=== PATIENT | male | born 1940 | race Caucasian/White ===

== ENCOUNTER → 2017-07-06 | Outpatient (CLI) | payer MEDICARE, OTHER ==
[~2017-07-06] MED LIST: ALLO300T PO; ASCO250T2 PO; ASPI-650 PO; ATOR10TA PO; CARV10CP PO; CHOL500045 PO; CYAN500T2 PO; DUTA0.5C PO; FAMO-79 PO; FOLI0.4T2 PO; GLIP5TAB10 PO; GLIP5TAB22 PO; HYDR-3240 PO; HYDR25TA6 PO; METF500T4 PO; METH4TAB2 PO; METH750T87 PO; MULT-717 PO; NIAC1000 PO; POTA10TA17 PO; POTA20TA6 PO; PYRI100T2 PO; TAMS-11 PO; VITA400C43 PO
== END | disposition home or self-care (01) ==
LOC: CFH 06:40
PROVIDERS: ATTEND Nurse Practitioner Family
DX: M48.07 Spinal stenosis, lumbosacral region (principal); M47.896 Other spondylosis, lumbar region; M41.86 Other forms of scoliosis, lumbar region; M51.36 Other intervertebral disc degeneration, lumbar region
CPT/HCPCS: 72110; 72148

== ENCOUNTER 2018-07-12 18:11 | Emergency (ER) | payer MEDICARE, OTHER ==
[~2018-07-12] VITALS: Ht 177.8 cm; Wt 71.6 kg
[~2018-07-12 18:11] MED LIST changes: +METF500T17 PO; -METF500T4 PO
[2018-07-12 18:17] VITALS: BP 151/71
[2018-07-12 18:50] LABS: ALBUMIN 3.7 g/dL (3.4-5.0); ANION GAP 10 mmol/L (5-15); CALCIUM 9.1 mg/dL (8.5-10.1); CHLORIDE 106 mmol/L (98-107); CREATININE 1.08 mg/dL (0.7-1.3)
[2018-07-12 18:56] LABS: BASOPHILS # (AUTO) 0.05 x10^3/uL (0-0.1); BASOPHILS % (AUTO) 1 % (0-1); EOSINOPHILS # (AUTO) 0.12 x10^3/uL (0-0.4); EOSINOPHILS % (AUTO) 2 % (1-7); LYMPHOCYTES # (AUTO) 2.51 x10^3/uL (1-3.4); LYMPHOCYTES % (AUTO) 36 % (22-44); MD NO; MEAN CORPUSCULAR HEMOGLOBIN 33.3 pg (27.5-34.5); MEAN CORPUSCULAR HGB CONC 34.5 g/dL (33.2-36.2); MEAN CORPUSCULAR VOLUME 96.4 fL (81-97); MEAN PLATELET VOLUME 9.3 fL (7.4-10.4); MONOCYTES # (AUTO) 0.63 x10^3/uL (0.2-0.8); MONOCYTES % (AUTO) 9 % (2-9); NEUTROPHILS # (AUTO) 3.67 x10^3/uL (1.8-6.8); NEUTROPHILS % (AUTO) 53 % (42-75); PLATELET COUNT 161 x10^3/uL (130-400); RED BLOOD COUNT 4.39 x10^6/uL (4.38-5.82); RED CELL DISTRIBUTION WIDTH 13.8 % (9.4-14.8)
[2018-07-12 19:45] LABS: MICROSCOPIC INDICATED
[2018-07-12 20:00] LABS: CULTURE INDICATED? NO
== END 2018-07-12 21:05 | disposition home or self-care (01) ==
LOC: ED 18:42
DX: N20.0 Calculus of kidney (principal); I10 Essential (primary) hypertension; E11.9 Type 2 diabetes mellitus without complications; Z90.89 Acquired absence of other organs; Z95.5 Presence of coronary angioplasty implant and graft
CPT/HCPCS: 36415; 74176; 80048; 81001; 82040; 85025; 99285

== ENCOUNTER → 2018-10-26 | Outpatient (CLI) | payer MEDICARE, OTHER | END | disposition home or self-care (01) | LOC: RAD 11:55 | PROVIDERS: ATTEND Physician Assistant Surgical | DX: N20.0 Calculus of kidney (principal) | CPT/HCPCS: 74018 ==

== ENCOUNTER 2019-01-17 19:15 | Emergency (ER) | payer MEDICARE, OTHER ==
[~2019-01-17] VITALS: Ht 177.8 cm; Wt 73.7 kg
[2019-01-17] MEDS ORDERED: ONDANSETRON ODT 4 MG PO ONE (19:30)
[2019-01-17] MEDS ORDERED: SODIUM CHLORIDE FLUSH 10ML SYR IVF ONE (19:30)
[2019-01-17 19:38] LABS: BASOPHILS # (AUTO) 0.05 x10^3/uL (0-0.1); BASOPHILS % (AUTO) 1 % (0-1); EOSINOPHILS # (AUTO) 0.16 x10^3/uL (0-0.4); EOSINOPHILS % (AUTO) 2 % (1-7); LYMPHOCYTES # (AUTO) 2.14 x10^3/uL (1-3.4); LYMPHOCYTES % (AUTO) 31 % (22-44); MD NO; MEAN CORPUSCULAR HEMOGLOBIN 33.4 pg (27.5-34.5); MEAN CORPUSCULAR HGB CONC 34.4 g/dL (33.2-36.2); MEAN CORPUSCULAR VOLUME 97.2 fL (81-97); MEAN PLATELET VOLUME 9.4 fL (7.4-10.4); MONOCYTES # (AUTO) 0.55 x10^3/uL (0.2-0.8); MONOCYTES % (AUTO) 8 % (2-9); NEUTROPHILS # (AUTO) 3.94 x10^3/uL (1.8-6.8); NEUTROPHILS % (AUTO) 58 % (42-75); PLATELET COUNT 147 x10^3/uL (130-400); RED BLOOD COUNT 4.35 x10^6/uL (4.38-5.82); RED CELL DISTRIBUTION WIDTH 13.3 % (9.4-14.8)
[2019-01-17 19:46] LABS: ALBUMIN 3.9 g/dL (3.4-5.0); ANION GAP 3 mmol/L (5-15); CALCIUM 9.4 mg/dL (8.5-10.1); CHLORIDE 110 mmol/L (98-107)
[2019-01-17 19:49] LABS: ALANINE AMINOTRANSFERASE 31 U/L (12-78); ALKALINE PHOSPHATASE 85 U/L (45-117); BILIRUBIN,TOTAL 0.5 mg/dL (0.2-1.0); CREATININE 1.33 mg/dL (0.7-1.3); TOTAL PROTEIN 6.9 g/dL (6.4-8.2)
[2019-01-17 20:24] LABS: MICROSCOPIC AUTO
[2019-01-17 20:44] LABS: CULTURE INDICATED? NO
[2019-01-17 22:08] VITALS: BP 138/96
[2019-01-17] MEDS ORDERED: HYDROcodone/APAP 5/325 TABLET ONE (22:59)
[2019-01-17] MEDS ORDERED: IBUPROFEN 200 MG TABLET ONE (22:59)
[2019-01-17] MEDS ORDERED: HYDROcodone/APAP 5/325 TABLET PO ONE (23:00)
[2019-01-17] MEDS ORDERED: IBUPROFEN 200 MG TABLET PO ONE (23:00)
--- NOTE | 2019-01-17 23:00 | NUR ---
PT TO ROOM PLACED IN GOWN AND POSITIONED FOR COMFORT AND AWAITING ERP RECHECK.
--- NOTE | 2019-01-17 23:45 | NUR ---
PT MEDICATED ORDERED AND AWAITING US RESULTS AND ERP RECHECK.
== END 2019-01-18 00:30 | disposition home or self-care (01) ==
LOC: ED 23:30
DX: N20.2 Calculus of kidney with calculus of ureter (principal); E11.9 Type 2 diabetes mellitus without complications; I11.9 Hypertensive heart disease without heart failure; Z90.89 Acquired absence of other organs
CPT/HCPCS: 36415; 76770; 80053; 81001; 85025; 99284; Q0162

== ENCOUNTER → 2019-10-13 | Outpatient (CLI) | payer MEDICARE, OTHER ==
[~2019-10-13] MED LIST changes: -CYAN500T2 PO; +CYAN500T54 PO
== END | disposition home or self-care (01) ==
LOC: RAD 09:31
PROVIDERS: ATTEND Physician Assistant Surgical
DX: Z87.442 Personal history of urinary calculi (principal)
CPT/HCPCS: 74018

== ENCOUNTER → 2020-02-21 | Outpatient (CLI) | payer MEDICARE, OTHER ==
[~2020-02-21] MED LIST changes: -PYRI100T2 PO; +PYRI100T9 PO
[2020-02-21 10:06] LABS: ALANINE AMINOTRANSFERASE 28 U/L (12-78); ALBUMIN 3.6 g/dL (3.4-5.0); CREATININE 0.95 mg/dL (0.7-1.3)
[2020-02-21 10:08] LABS: ALKALINE PHOSPHATASE 68 U/L (45-117); BILIRUBIN,TOTAL 0.9 mg/dL (0.2-1.0); TOTAL PROTEIN 6.9 g/dL (6.4-8.2)
[2020-02-21 10:28] LABS: ANION GAP 6 mmol/L (5-15); CHLORIDE 107 mmol/L (98-107)
== END | disposition home or self-care (01) ==
LOC: LAB 09:19
PROVIDERS: ATTEND Family Medicine
DX: E11.40 Type 2 diabetes mellitus with diabetic neuropathy, unspecified (principal); I10 Essential (primary) hypertension
CPT/HCPCS: 36415; 80053; 82043; 82570; 83036

== ENCOUNTER 2020-04-07 08:27 | Emergency (ER) | payer MEDICARE, OTHER ==
[~2020-04-07] VITALS: Ht 172.7 cm; Wt 79.5 kg
[2020-04-07 08:53] VITALS: BP 136/63
--- NOTE | 2020-04-07 09:05 | NUR ---
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 RENÉE
--- NOTE | 2020-04-07 09:20 | NUR ---
Patient given discharge instructions and they have confirmed that they understand the instructions. Patient ambulatory with steady gait. Pt left with d/c paperwork and all personal belongings. NADN. No other needs expressed.
== END 2020-04-07 09:28 | disposition home or self-care (01) ==
LOC: ED 09:27
DX: B34.9 Viral infection, unspecified (principal); Z20.828 Contact with and (suspected) exposure to other viral communicable diseases; Z87.891 Personal history of nicotine dependence
CPT/HCPCS: 99283; U0001

== ENCOUNTER → 2020-10-10 | Outpatient (CLI) | payer MEDICARE, OTHER ==
[~2020-10-10] MED LIST changes: +ASCO250T12 PO; -ASCO250T2 PO; +CYAN500T53 PO; -CYAN500T54 PO
== END | disposition home or self-care (01) ==
LOC: LAB 15:38
PROVIDERS: ATTEND Physician Assistant Surgical
DX: Z12.5 Encounter for screening for malignant neoplasm of prostate (principal)
CPT/HCPCS: 36415; G0103

== ENCOUNTER 2021-01-21 09:44 | Outpatient (CLI) | payer MEDICARE, OTHER ==
[~2021-01-21 09:44] MED LIST changes: +ASPI-1026 PO; -ASPI-650 PO; -CYAN500T53 PO; +CYAN500T7 PO; -FOLI0.4T2 PO; +FOLI0.4T5 PO; +HYDR-2214 PO; -HYDR-3240 PO
== END 2021-01-21 23:59 | disposition home or self-care (01) ==
LOC: LAB 09:44
PROVIDERS: ATTEND Physician Assistant Surgical
DX: Z12.5 Encounter for screening for malignant neoplasm of prostate (principal)
CPT/HCPCS: 36415; 84153; G0103